=== PATIENT | female | born 1930 | race African-American/Black ===

== ENCOUNTER 2020-02-01 13:12 | Inpatient (IN) | payer MEDICARE, MEDICAID ==
[~2020-02-01] VITALS: Ht 165.1 cm; Wt 67.4 kg
[2020-02-01] MEDS ORDERED: SODIUM CHLORIDE 0.9% 1,000 ML IV ONE (13:30)
[2020-02-01 14:14] LABS: BASOPHILS % 0.5 % (0.0-2.0); EOSINOPHILS % 0.3 % (0.0-5.0); LYMPHOCYTES % 20.2 % (20.0-50.0); MEAN CORPUSCULAR HEMOGLOBIN 25.5 pg (28.0-32.0); MEAN CORPUSCULAR VOLUME 82.7 fL (81.0-99.0); MEAN PLATELET VOLUME 7.7 fl (7.4-10.4); MONOCYTES % 7.8 % (2.0-8.0); NEUTROPHILS % 71.2 % (40.0-76.0); PLATELET 287 x1000/uL (130-400)
[2020-02-01 14:18] LABS: CHLORIDE 113 mEq/L (98-107); HEMATOCRIT. 11.6 % (36.0-48.0); HEMOGLOBIN. 3.6 g/dL (12.0-16.0)
[2020-02-01 14:21] LABS: INR 1.1
[2020-02-01 15:28] LABS: CLARITY URINE CLEAR (CLEAR); COLOR URINE YELLOW (YELLOW); KETONES URINE NEGATIVE (NEGATIVE); LEUKOCYTE ESTERASE URINE TRACE (NEGATIVE); NITRITE URINE NEGATIVE (NEGATIVE); OCCULT BLOOD URINE NEGATIVE (NEGATIVE); PROTEIN URINE NEGATIVE (NEGATIVE); SPECIFIC GRAVITY URINE 1.016 (1.005-1.030); UROBILINOGEN URINE 0.2 E.U./dL (0.2-1.0)
[2020-02-01] MEDS ORDERED: ONDANSETRON HCL 4MG/2ML INJ IV PRN (18:00)
[2020-02-01] MEDS ORDERED: ACETAMINOPHEN 325MG TABLET PO PRN (18:00)
[2020-02-01] MEDS ORDERED: POTASSIUM CHLORIDE 20MEQ TABLET SR PO NR (18:00)
[2020-02-01] MEDS ORDERED: KCL 10MEQ/50ML PREMIX 50 ML IV SCH ×2 (19:00→22:15)
[2020-02-01] MEDS ORDERED: TRAZODONE HCL 50MG TABLET PO PRN (21:00)
[2020-02-01 23:29] LABS: TOTAL IRON BINDING CAPACITY 157 ug/dL (250-450)
[2020-02-02] VITALS (16 sets, daily range): BP systolic 107–130; BP diastolic 45–64
[2020-02-02 00:26] LABS: BASOPHILS % 0.7 % (0.0-2.0); EOSINOPHILS % 0.6 % (0.0-5.0); LYMPHOCYTES % 25.8 % (20.0-50.0); MEAN CORPUSCULAR HEMOGLOBIN 27.2 pg (28.0-32.0); MEAN CORPUSCULAR VOLUME 87.3 fL (81.0-99.0); MEAN PLATELET VOLUME 8.2 fl (7.4-10.4); MONOCYTES % 8.9 % (2.0-8.0); PLATELET 263 x1000/uL (130-400); RED BLOOD CELL COUNT 1.69 mill/uL (4.2-5.4); RED CELL DISTRIBUTION WIDTH 19.5 % (11.6-14.6)
[2020-02-02 00:37] LABS: HEMATOCRIT. 14.7 % (36.0-48.0); HEMOGLOBIN. 4.6 g/dL (12.0-16.0)
[2020-02-02] MEDS ORDERED: ASPI-1497 PO (09:22)
[2020-02-02] MEDS ORDERED: FERR-71 MT (09:22)
[2020-02-02] MEDS ORDERED: CRES10 PO (09:22)
[2020-02-02] MEDS ORDERED: ISOS60TA4 PO (09:22)
[2020-02-02] MEDS ORDERED: CARV12.545 PO (09:22)
[2020-02-02] MEDS ORDERED: DOCU-138 PO (09:22)
[2020-02-02] MEDS ORDERED: XAR15 MT (09:22)
[2020-02-02] MEDS ORDERED: SPIR25TA6 MT (09:22)
[2020-02-02] MEDS ORDERED: ASCO-339 MT (09:22)
[2020-02-02] MEDS ORDERED: AMIO100T4 MT (09:22)
[2020-02-02 12:42] LABS: BASOPHILS % 0.5 % (0.0-2.0); EOSINOPHILS % 0.3 % (0.0-5.0); HEMATOCRIT. 24.7 % (36.0-48.0); HEMOGLOBIN. 7.9 g/dL (12.0-16.0); LYMPHOCYTES % 16.2 % (20.0-50.0); MEAN CORPUSCULAR HEMOGLOBIN 27.2 pg (28.0-32.0); MEAN CORPUSCULAR VOLUME 85.5 fL (81.0-99.0); MEAN PLATELET VOLUME 7.4 fl (7.4-10.4); MONOCYTES % 10.2 % (2.0-8.0); NEUTROPHILS % 72.8 % (40.0-76.0); PLATELET 285 x1000/uL (130-400); RED BLOOD CELL COUNT 2.89 mill/uL (4.2-5.4); RED CELL DISTRIBUTION WIDTH 18.5 % (11.6-14.6)
[2020-02-02 12:51] LABS: CHLORIDE 118 mEq/L (98-107)
[2020-02-02] MEDS: SODIUM CHLORIDE 0.45% 1,000 ML IV SCH ×2 (13:15→23:15)
[2020-02-02] MEDS: FERROUS SULFATE 325MG TABLET PO SCH (18:39)
[2020-02-03] VITALS (10 sets, daily range): BP systolic 113–137; BP diastolic 47–81
[2020-02-03 00:58] LABS: HEMATOCRIT 23.3 % (36.0-48.0); HEMOGLOBIN 7.6 g/dL (12.0-16.0)
[2020-02-03 08:01] LABS: BASOPHILS % 0.5 % (0.0-2.0); EOSINOPHILS % 1.4 % (0.0-5.0); HEMATOCRIT. 24.6 % (36.0-48.0); HEMOGLOBIN. 7.9 g/dL (12.0-16.0); LYMPHOCYTES % 21.7 % (20.0-50.0); MEAN CORPUSCULAR HEMOGLOBIN 27.3 pg (28.0-32.0); MEAN CORPUSCULAR VOLUME 85.2 fL (81.0-99.0); MEAN PLATELET VOLUME 7.2 fl (7.4-10.4); MONOCYTES % 10.9 % (2.0-8.0); NEUTROPHILS % 65.5 % (40.0-76.0); PLATELET 300 x1000/uL (130-400); RED BLOOD CELL COUNT 2.89 mill/uL (4.2-5.4)
[2020-02-03 08:08] LABS: CHLORIDE 115 mEq/L (98-107)
[2020-02-03 08:21] LABS: HAPTOGLOBIN 126 mg/dL (30-200)
[2020-02-03] MEDS: FERROUS SULFATE 325MG TABLET PO SCH ×3 (08:58→17:26)
[2020-02-03] MEDS ORDERED: AMIODARONE HCL 200 MG TABLET PO SCH (16:00)
[2020-02-03 16:38] LABS: HEMATOCRIT 25.9 % (36.0-48.0); HEMOGLOBIN 8.2 g/dL (12.0-16.0)
== END 2020-02-03 21:20 | disposition home or self-care (01) | DRG 663 ==
LOC: ER 13:12 → EDBEDREQ 14:26 → EDBEDREQSVC 14:26 → EDBEDREQTM 14:26 → 5EST 17:13 → EDBEDREQ 17:15 → EDBEDREQTM 17:15 → EDBEDREQSVC 23:11 → ENRESERV 02-02 00:21
PROVIDERS: ADMIT Internal Medicine; ATTEND Internal Medicine
PROC: 30233N1 Transfusion of Nonautologous Red Blood Cells into Peripheral Vein, Percutaneous Approach (ICD-10-PCS; principal; 2020-02-01)
DX: D64.9 Anemia, unspecified (principal); N17.0 Acute kidney failure with tubular necrosis; I95.9 Hypotension, unspecified; G90.8 Other disorders of autonomic nervous system; E86.9 Volume depletion, unspecified; E87.6 Hypokalemia; E44.0 Moderate protein-calorie malnutrition; N18.9 Chronic kidney disease, unspecified; E88.09 Other disorders of plasma-protein metabolism, not elsewhere classified; E87.0 Hyperosmolality and hypernatremia; I48.91 Unspecified atrial fibrillation; I12.9 Hypertensive chronic kidney disease with stage 1 through stage 4 chronic kidney disease, or unspecified chronic kidney disease; E11.22 Type 2 diabetes mellitus with diabetic chronic kidney disease; Z68.24 Body mass index [BMI] 24.0-24.9, adult; Z79.01 Long term (current) use of anticoagulants
CPT/HCPCS: 36415; 71045; 80053; 81003; 82270; 82607; 82728; 82746; 83010; 83540; 83550; 83605; 83615; 83735; 84145; 84484; 85014; 85018; 85025; 85044; 86850; 86880; 86900; 86920; 93005; 93306; 93970; 99291; J3480; J7030; P9016